=== PATIENT | male | born 2000 | race Caucasian/White ===

== ENCOUNTER 2024-02-17 08:38 | Emergency (ER) | payer BC, SELFPAY | END 2024-02-17 11:01 | disposition home or self-care (01) | LOC: ERS 08:38 | DX: S16.1XXA Strain of muscle, fascia and tendon at neck level, initial encounter (principal); S50.812A Abrasion of left forearm, initial encounter; R51.9 Headache, unspecified; F17.210 Nicotine dependence, cigarettes, uncomplicated; V48.0XXA Car driver injured in noncollision transport accident in nontraffic accident, initial encounter; Y93.89 Activity, other specified; Y92.410 Unspecified street and highway as the place of occurrence of the external cause | CPT/HCPCS: 70450; 72125 ==